=== PATIENT | female | born 1970 | race Caucasian/White ===

== ENCOUNTER 2021-11-28 15:31 | Emergency (ER) | payer MEDICARE, OTHER ==
[2021-11-28] MEDS ORDERED: THIAMINE 100 MG/ML 2 ML VIAL IM STA (15:55)
[2021-11-28] MEDS ORDERED: LORazepam 2 MG/ML INJ IV PRN ×3 (15:55)
[2021-11-28] MEDS ORDERED: LORazepam 2 MG/ML INJ IV STA (16:07)
--- NOTE | 2021-11-28 16:08 | ED ---
General Adult HPI - General Stated complaint: Mental health Time Seen by Provider: 11/28/21 15:32 - History of Present Illness Initial comments: Dictation was produced using [employer] dictation software. please excuse any grammatical, word or spelling errors. Chief Complaint: 51-year-old female presents with emergency room for suicidal i deation and psychotic symptoms History of Present Illness: She is 51-year-old female she has past medical history of alcohol abuse. She also has recent history of uterine cancer and back surgery. Patient states that due to all of her medical issues she has resorted to alcoholism. She drinks several months of liquor daily. Patient states that she feels suicidal. She does not have a specific plan. She hears voices in her head. She is also very paranoid about people watching her. She feels depressed. She states that she has not been compliant with her anxiolytic medications recently. She states that she was voices in her head that she wants to stop. The ROS documented in this emergency department record has been reviewed and confirmed by me. Those systems with pertinent positive or negative responses have been documented in the HPI. All other systems are other negative and/or noncontributory. PHYSICAL EXAM: General Impression: Alert and oriented x3, not in acute distress HEENT: Normocephalic atraumatic, extra-ocular movements intact, pupils equal and reactive to light bilaterally, mucous membranes moist. Cardiovascular: Heart regular rate and rhythm Chest: Able to complete full sentences, no retractions, no tachypnea Abdomen: abdomen soft, non-tender, non-distended, no organomegaly Musculoskeletal: Pulses present and equal in all extremities, no peripheral edema Motor: no focal deficits noted Neurological: CN II-XII grossly intact, no focal motor or sensory deficits noted Skin: Intact with no visualized rashes Psych: Tangential speech ED course: 51-year-old female presents emergency department for psychotic symptoms and suicidal ideation. Laboratory evaluation obtained. CBC, metabolic panel is unremarkable. Urine drug screen positive for benzos. Serum alcohol is 81. Patient is medically cleared for EPS evaluation Patient was evaluated by EPS and recommended discharge. Plan at discharge was to follow-up [facility] patient's usual psychiatric care is. - Related Data Allergies Allergy/AdvReac Type Severity Reaction Status Date / Time bee venom protein (honey bee) Allergy Rash/Hives Verified 11/28/21 16:14 amitriptyline AdvReac Unknown Verified 11/28/21 16:14 baclofen AdvReac Unknown Verified 11/28/21 16:14 buprenorphine AdvReac Unknown Verified 11/28/21 16:14 bupropion [From Wellbutrin] AdvReac Unknown Verified 11/28/21 16:15 buspirone AdvReac Unknown Verified 11/28/21 16:14 citalopram [From Celexa] AdvReac Unknown Verified 11/28/21 16:14 cyclobenzaprine AdvReac Unknown Verified 11/28/21 16:14 [From Flexeril] escitalopram [From Lexapro] AdvReac Unknown Verified 11/28/21 16:14 gabapentin AdvReac Unknown Verified 11/28/21 16:14 hydroxyzine [From Vistaril] AdvReac Unknown Verified 11/28/21 16:15 lamotrigine AdvReac Unknown Verified 11/28/21 16:14 metoclopramide [From Reglan] AdvReac Unknown Verified 11/28/21 16:15 morphine AdvReac Unknown Verified 11/28/21 16:14 paroxetine [From Paxil] AdvReac Unknown Verified 11/28/21 16:14 prochlorperazine AdvReac Unknown Verified 11/28/21 16:14 [From Compazine] sertraline [From Zoloft] AdvReac Unknown Verified 11/28/21 16:14 tramadol AdvReac Unknown Verified 11/28/21 16:14 venlafaxine [From Effexor] AdvReac Unknown Verified 11/28/21 16:14 Review of Systems ROS Statement: Those systems with pertinent positive or pertinent negative responses have been documented in the HPI. ROS Other: All systems not noted in ROS Statement are negative. Course Vital Signs 11/28/21 15:57 Temperature 98.3 F Pulse Rate 76 Respiratory 19 Rate Blood Pressure 151/96 O2 Sat by Pulse 96 Oximetry Medical Decision Making - Lab Data Result diagrams: 11/28/21 16:35 11/28/21 17:27 Lab Results 11/28/21 11/28/21 11/28/21 Range/Units 16:35 16:35 17:27 WBC 4.2 (3.8-10.6) k/uL RBC 4.35 (3.80-5.40) m/uL Hgb 13.5 (11.4-16.0) gm/dL Hct 42.2 (34.0-46.0) % MCV 97.0 (80.0-100.0) fL MCH 31.0 (25.0-35.0) pg MCHC 31.9 (31.0-37.0) g/dL RDW 13.6 (11.5-15.5) % Plt Count 152 (150-450) k/uL MPV 8.1 Neutrophils % 75 % Lymphocytes % 17 % Monocytes % 4 % Eosinophils % 2 % Basophils % 1 % Neutrophils # 3.2 (1.3-7.7) k/uL Lymphocytes # 0.7 L (1.0-4.8) k/uL Monocytes # 0.2 (0-1.0) k/uL Eosinophils # 0.1 (0-0.7) k/uL Basophils # 0.0 (0-0.2) k/uL Sodium 138 (137-145) mmol/L Potassium 4.0 (3.5-5.1) mmol/L Chloride 100 (98-107) mmol/L Carbon Dioxide 26 (22-30) mmol/L Anion Gap 12 mmol/L BUN 11 (7-17) mg/dL Creatinine 0.71 (0.52-1.04) mg/dL Est GFR (CKD-EPI)AfAm >90 (>60 ml/min/1.73 sqM) Est GFR (CKD-EPI)NonAf >90 (>60 ml/min/1.73 sqM) Glucose 103 H (74-99) mg/dL Calcium 8.5 (8.4-10.2) mg/dL Urine Opiates Screen Not Detected (NotDetected) Ur Oxycodone Screen Not Detected (NotDetected) Urine Methadone Screen Not Detected (NotDetected) Ur Propoxyphene Screen Not Detected (NotDetected) Ur Barbiturates Screen Not Detected (NotDetected) U Tricyclic Antidepress Not Detected (NotDetected) Ur Phencyclidine Scrn Not Detected (NotDetected) Ur Amphetamines Screen Not Detected (NotDetected) U Methamphetamines Scrn Not Detected (NotDetected) U Benzodiazepines Scrn Detected H (NotDetected) Urine Cocaine Screen Not Detected (NotDetected) U Marijuana (THC) Screen Not Detected (NotDetected) Serum Alcohol 81 mg/dL Disposition Clinical Impression: Adjustment disorder, Alcohol abuse Disposition: HOME SELF-CARE Condition: Fair Instructions (If sedation given, give patient instructions): Suicide Prevention (ED) Is patient prescribed a controlled substance at d/c from ED?: No Referrals: Joe Chapa MD [Primary Care Provider] - 1-2 days
[2021-11-28 16:09] VITALS: BP 151/96; PULSE 76; RESP 19; TEMP 98.3
[2021-11-28 16:47] LABS: Basophils % (A) 1 %; Eosinophils # (A) 0.1 k/uL (0-0.7); Eosinophils % (A) 2 %; HCT 42.2 % (34.0-46.0); HGB 13.5 gm/dL (11.4-16.0); Lymphocytes # (A) 0.7 k/uL (1.0-4.8); Lymphocytes % (A) 17 %; MCHC 31.9 g/dL (31.0-37.0); Mean Platelet Volume 8.1; Monocytes # (A) 0.2 k/uL (0-1.0); Monocytes % (A) 4 %; Neutrophils # (A) 3.2 k/uL (1.3-7.7); Neutrophils % (A) 75 %; Platelet Count 152 k/uL (150-450); RBC 4.35 m/uL (3.80-5.40); RDW 13.6 % (11.5-15.5); WBC 4.2 k/uL (3.8-10.6)
[2021-11-28 17:14] LABS: Amphetamine Screen,Urine Not Detected (NotDetected); Barbiturate Screen,Urine Not Detected (NotDetected); Benzodiazepines Screen,Urine Detected (NotDetected); Cocaine Screen,Urine Not Detected (NotDetected); Methadone Screen, Urine Not Detected (NotDetected); Opiate Screen,Urine Not Detected (NotDetected); Oxycodone Screen, Urine Not Detected (NotDetected); Phencyclidine Screen,Urine Not Detected (NotDetected); Tricyclic Antidepressant,Urine Not Detected (NotDetected); Urn Cannabinoid Scrn Not Detected (NotDetected)
[2021-11-28 17:48] LABS: African American GFR (CKD) >90 (>60 ml/min/1.73 sqM); Anion Gap 12 mmol/L; Blood Urea Nitrogen 11 mg/dL (7-17); Calcium 8.5 mg/dL (8.4-10.2); Carbon Dioxide 26 mmol/L (22-30); Chloride 100 mmol/L (98-107); Glucose 103 mg/dL (74-99); Non-African American GFR(CKD) >90 (>60 ml/min/1.73 sqM); Sodium 138 mmol/L (137-145)
[2021-11-28 17:51] LABS: Alcohol 81 mg/dL
[2021-11-29] MEDS ORDERED: THIAMINE 100 MG TAB PO SCH (07:30)
== END 2021-11-28 20:17 | disposition home or self-care (01) ==
LOC: EC 15:31
DX: F10.10 Alcohol abuse, uncomplicated (principal); F43.20 Adjustment disorder, unspecified; Z91.030 Bee allergy status; Z88.8 Allergy status to other drugs, medicaments and biological substances; Z88.6 Allergy status to analgesic agent; Z88.5 Allergy status to narcotic agent
CPT/HCPCS: 82075; 36415; 93005; 80048; 85025; 80306; 99284; 96374; 96372; G0480; J2060; J3411; 80320